=== PATIENT | male | born 1975 | race Hispanic/Latino ===

== ENCOUNTER 2021-02-26 16:16 | Emergency (ER) | payer SELFPAY ==
[2021-02-26 16:57] LABS: Absolute Lymphocytes (CBC) 2.2 K/uL (0.7-4.9); Basophils % 0.3 % (0-1.3); Hematocrit 43.5 % (39.6-49.0); Lymphocytes % 28.3 % (15.3-44.8); MPV 8.7 fL (7.6-11.3); RBC Red Blood Cell Count 5.33 M/uL (4.33-5.43)
[2021-02-26 17:15] LABS: Protime INR 0.93
--- NOTE | 2021-02-26 17:15 | RAD REPORT ---
EXAM DESCRIPTION: Hillary Single View02/26/2021 4:59 pm CLINICAL HISTORY: Chest pain COMPARISON: none FINDINGS: The lungs appear clear of acute infiltrate. The heart is normal size IMPRESSION: No acute abnormalities displayed
[2021-02-26 17:29] LABS: ALT/SGPT 75 U/L (12-78); AST/SGOT 42 U/L (15-37); Alkaline Phosphatase 124 U/L (45-117); BUN Blood Urea Nitrogen 12 mg/dL (7-18); Bicarbonate 27 mmol/L (21-32); Bilirubin Direct < 0.1 mg/dL (0-0.2); Bilirubin Total 0.3 mg/dL (0.2-1.0); Glucose Level 127 mg/dL (74-106); Magnesium 2.3 mg/dL (1.8-2.4); NT PRO-BNP 19 pg/mL (<125); Potassium 3.6 mmol/L (3.5-5.1); Protein, Total 7.7 g/dL (6.4-8.2); Sodium Level 138 mmol/L (136-145); Troponin (Emerg Dept Use Only) < 0.02 ng/mL (0.0-0.045)
--- NOTE | 2021-02-26 19:10 | EDPHYS ---
Physician Documentation [facility] Name: Homer Moore Age: 45 yrs Sex: Male : 1975 Arrival Date: 02/26/2021 Time: 16:20 Bed 2 Private MD: ED Physician Charly Wright HPI: 02/27 07:58 This 45 yrs old Male presents to ER via EMS with complaints of Chest Pain, kdr Dizziness. 07:58 The patient or guardian reports chest pain that is located primarily in the substernal kdr area, anterior chest wall. Onset: suddenly, just prior to arrival. The pain does not radiate. Associated signs and symptoms: Pertinent positives: dizziness, lightheadedness. The chest pain is described as aching, dull, a pressure. Duration: The patient or guardian reports a single episode, that is now resolved. Severity of pain: At its worst the pain was mild just prior to arrival, in the emergency department the pain is unchanged. The patient has experienced similar episodes in the past, This is the third episode the patient had. Patient has had several other episodes previously. He has been evaluated for this previously by his physician. Has not had a cardiology follow-up.. Historical: - Allergies: 02/26 16:24 No Known Allergies; hb - Home Meds: 16:24 None [Active]; hb - PMHx: 16:24 None; hb - PSHx: 16:24 None; hb - Immunization history:: Adult Immunizations up to date. - Social history:: Smoking status: Patient denies any tobacco usage or history of. ROS: 02/27 07:58 Constitutional: Negative for fever, chills, and weight loss, Eyes: Negative for injury, kdr pain, redness, and discharge, ENT: Negative for injury, pain, and discharge, Neck: Negative for injury, pain, and swelling, Respiratory: Negative for shortness of breath, cough, wheezing, and pleuritic chest pain, Abdomen/GI: Negative for abdominal pain, nausea, vomiting, diarrhea, and constipation, Back: Negative for injury and pain, : Negative for injury, bleeding, discharge, and swelling, MS/Extremity: Negative for injury and deformity, Skin: Negative for injury, rash, and discoloration, Psych: Negative for depression, anxiety, suicide ideation, homicidal ideation, and hallucinations, Allergy/Immunology: Negative for hives, rash, and allergies, Endocrine: Negative for neck swelling, polydipsia, polyuria, polyphagia, and marked weight changes, Hematologic/Lymphatic: Negative for swollen nodes, abnormal bleeding, and unusual bruising. Cardiovascular: Positive for chest pain, Negative for edema, orthopnea, palpitations, paroxysmal nocturnal dyspnea. Neuro: Positive for dizziness, Negative for altered mental status, headache, hearing loss, loss of consciousness, numbness, seizure activity, speech changes, syncope, near syncope, tinnitus. Exam: 07:58 Constitutional: This is a well developed, well nourished patient who is awake, alert, kdr and in no acute distress. Head/Face: Normocephalic, atraumatic. Eyes: Pupils equal round and reactive to light, extra-ocular motions intact. Lids and lashes normal. Conjunctiva and sclera are non-icteric and not injected. Cornea within normal limits. Periorbital areas with no swelling, redness, or edema. Neck: Trachea midline, no thyromegaly or masses palpated, and no cervical lymphadenopathy. Supple, full range of motion without nuchal rigidity, or vertebral point tenderness. No Meningismus. Chest/axilla: Normal chest wall appearance and motion. Nontender with no deformity. No lesions are appreciated. Cardiovascular: Regular rate and rhythm with a normal S1 and S2. No gallops, murmurs, or rubs. Normal PMI, no JVD. No pulse deficits. Respiratory: Lungs have equal breath sounds bilaterally, clear to auscultation and percussion. No rales, rhonchi or wheezes noted. No increased work of breathing, no retractions or nasal flaring. Abdomen/GI: Soft, non-tender, with normal bowel sounds. No distension or tympany. No guarding or rebound. No evidence of tenderness throughout. Back: No spinal tenderness. No costovertebral tenderness. Full range of motion. Skin: Warm, dry with normal turgor. Normal color with no rashes, no lesions, and no evidence of cellulitis. MS/ Extremity: Pulses equal, no cyanosis. Neurovascular intact. Full, normal range of motion. Neuro: Awake and alert, GCS 15, oriented to person, place, time, and situation. Cranial nerves II-XII grossly intact. Motor strength 5/5 in all extremities. Sensory grossly intact. Cerebellar exam normal. Normal gait. Psych: Awake, alert, with orientation to person, place and time. Behavior, mood, and affect are within normal limits. 08:14 ECG was reviewed by the Attending Physician. kdr Vital Signs: 02/26 16:20 BP 152 / 114; Pulse 77; Resp 16; Pulse Ox 100% ; Pain 0/10; ll1 16:45 BP 131 / 89; ll1 18:39 BP 142 / 91; Pulse 67; Resp 14; Pulse Ox 100% ; hb 19:11 BP 127 / 87; Pulse 62; Resp 18; Temp 98; Pulse Ox 100% on R/A; ch4 MDM: 19:08 Patient medically screened. kdr 02/27 07:58 Data reviewed: vital signs, nurses notes, lab test result(s), radiologic studies. kdr Counseling: I had a detailed discussion with the patient and/or guardian regarding: the historical points, exam findings, and any diagnostic results supporting the discharge/admit diagnosis, lab results, radiology results, the need for outpatient follow up. Special discussion: Based on the patient's history, exam, and Dx evaluation, there is no indication for emergent intervention or inpatient Tx. It is understood by the patient/guardian that if the Sx's persist or worsen they need to return immediately for re-evaluation. ED course: Patient was stable in the emergency department and had no further symptoms. He was discharged in good condition. He was happy with the care provided and the plan for discharge and follow-up. 02/26 16:29 Order name: Basic Metabolic Panel hb 02/26 16:29 Order name: CBC with Diff; Complete Time: 17:45 hb 02/26 16:29 Order name: LFT's; Complete Time: 17:45 hb 02/26 16:29 Order name: Magnesium; Complete Time: 17:45 hb 02/26 16:29 Order name: NT PRO-BNP; Complete Time: 17:45 hb 02/26 16:29 Order name: PT-INR; Complete Time: 17:45 hb 02/26 16:29 Order name: Troponin (emerg Dept Use Only); Complete Time: 17:45 hb 02/26 16:29 Order name: XRAY Chest (1 view); Complete Time: 17:45 hb 02/26 16:29 Order name: EKG; Complete Time: 16:30 hb 02/26 16:29 Order name: Cardiac monitoring; Complete Time: 16:29 hb 02/26 16:29 Order name: EKG - Nurse/Tech; Complete Time: 16:29 hb 02/26 16:29 Order name: IV Saline Lock; Complete Time: 16:30 hb 02/26 16:29 Order name: Basic Metabolic Panel; Complete Time: 17:45 EDMS 02/26 17:46 Order name: Troponin (emerg Dept Use Only): Draw 2 hours after initial draw ; Complete kdr Time: 19:02/26 19:07 Interpretation: Within normal limits. kdr 02/26 16:29 Order name: Labs collected and sent; Complete Time: 16:30 hb 02/26 16:29 Order name: O2 Per Protocol; Complete Time: 16:30 hb 02/26 16:29 Order name: O2 Sat Monitoring; Complete Time: 16:30 hb EC:14 Rate is 78 beats/min. Rhythm is regular, Sinus Rhythm with No ectopy. QRS [place] is kdr Normal. [place] interval is normal. QRS interval is normal. QT interval is normal. Clinical impression: NSR w/ Non-specific ST/T Changes. Administered Medications: No medications were administered Disposition Summary: 02/26/21 19:08 Discharge Ordered Location: Home kdr Problem: an acute exacerbation kdr Symptoms: are resolved kdr Condition: Stable kdr Diagnosis - Chest pain, unspecified kdr Followup: kdr - With: Private Physician - When: 2 - 3 days - Reason: If symptoms return, Further diagnostic work-up, Recheck today's complaints, Continuance of care, Re-evaluation by your physician Discharge Instructions: - Discharge Summary Sheet kdr - Nonspecific Chest Pain, Adult, [id number] kdr Forms: - Medication Reconciliation Form kdr - Thank You Letter kdr Signatures: Dispatcher Charly Schaefer MD MD kdr Dayana Quintanilla, RN RN Rhonda Ivey RN RN ll1
--- NOTE | 2021-02-26 19:10 | ER ---
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 CP also. Coronavirus screen: Client denies travel out of the [place] in the last 14 days. At this time, the client does not indicate any symptoms associated with coronavirus-19. Ebola Screen: Patient denies travel to an Ebola-affected area in the 21 days before illness onset. Initial Sepsis Screen: Does the patient meet any 2 criteria? No. Patient's initial sepsis screen is negative. Does the patient have a suspected source of infection? No. Patient's initial sepsis screen is negative. Risk Assessment: Do you want to hurt yourself or someone else? Patient reports no desire to harm self or others. Onset of symptoms was February 26, 2021. 16:20 Method Of Arrival: EMS: [facility] 1 16:20 Acuity: ASHLIE 3 ll1 Triage Assessment: 16:22 General: Appears in no apparent distress. Behavior is calm, cooperative. Pain: Denies hb pain. EENT: No signs and/or symptoms were reported regarding the EENT system. Neuro: Level of Consciousness is awake, alert, obeys commands, Oriented to person, place, time, situation. Cardiovascular: Patient's skin is warm and dry. Rhythm is regular. Respiratory: Respiratory effort is even, unlabored, Respiratory pattern is regular, symmetrical. GI: No signs and/or symptoms were reported involving the gastrointestinal system. : No signs and/or symptoms were reported regarding the genitourinary system. Derm: Skin is pink, warm \T\ dry. Musculoskeletal: No signs and/or symptoms reported regarding the musculoskeletal system. Historical: - Allergies: 16:24 No Known Allergies; hb - Home Meds: 16:24 None [Active]; hb - PMHx: 16:24 None; hb - PSHx: 16:24 None; hb - Immunization history:: Adult Immunizations up to date. - Social history:: Smoking status: Patient denies any tobacco usage or history of. Screenin:24 Abuse screen: Denies threats or abuse. Denies injuries from another. Nutritional hb screening: No deficits noted. Tuberculosis screening: No symptoms or risk factors identified. Fall Risk None identified. Assessment: 16:24 Reassessment: see triage. hb 16:24 General: Appears in no apparent distress. Behavior is calm, cooperative, appropriate ll1 for age. Pain: Denies pain. Pain: Pain does not radiate. Pain began 30 min ago. Neuro: Level of Consciousness is awake, alert, obeys commands, Gait is Speech is normal, Facial symmetry appears normal, Reports dizziness, weakness. Cardiovascular: Reports chest pain, Heart tones S1 S2 Capillary refill < 3 seconds Clubbing of nail beds is absent JVD is absent Patient's skin is warm and dry. Respiratory: No deficits noted. 18:39 Reassessment: Patient appears in no apparent distress at this time. No changes from hb previously documented assessment. Vital Signs: 16:20 BP 152 / 114; Pulse 77; Resp 16; Pulse Ox 100% ; Pain 0/10; ll1 16:45 BP 131 / 89; ll1 18:39 BP 142 / 91; Pulse 67; Resp 14; Pulse Ox 100% ; hb 19:11 BP 127 / 87; Pulse 62; Resp 18; Temp 98; Pulse Ox 100% on R/A; ch4 ED Course: 16:20 Patient arrived in ED. ll1 16:20 Dayana Quintanilla, RN is Primary Nurse. hb 16:20 Primary Nurse role handed off by Dayana Quintanilla, SANDRA ll1 16:20 Rhonda Ivey, SANRDA is Primary Nurse. ll1 16:20 Arm band placed on Patient placed in an exam room, on a stretcher. ll1 16:22 Triage completed. ll1 16:24 Patient has correct armband on for positive identification. Call light in reach. Side hb rails up X 1. 16:24 No provider procedures requiring assistance completed. Maintain EMS IV. Dressing hb intact. Good blood return noted. Site clean \T\ dry. Gauge \T\ site: 18 RRIST. 16:25 Maintain EMS IV. Dressing intact. Good blood return noted. Site clean \T\ dry. Gauge \T\ ll 1 site: 18 G R FA. Patient maintains SpO2 saturation greater than 95% on room air. 16:31 Charly Wright MD is Attending Physician. kdr 16:59 XRAY Chest (1 view) In Process Unspecified. EDMS 17:54 Troponin (emerg Dept Use Only): Draw 2 hours after initial draw Sent. hb 19:10 IV discontinued, intact, bleeding controlled, No redness/swelling at site. Pressure ch4 dressing applied. Administered Medications: No medications were administered Outcome: 19:08 Discharge ordered by . kdr 19:15 Discharged to home ambulatory. hb 19:15 Condition: stable 19:15 Discharge instructions given to patient, Instructed on discharge instructions, follow up and referral plans. medication usage, Demonstrated understanding of instructions, follow-up care, medications. 19:15 Patient left the ED. hb Signatures: Dispatcher [employer] [facility] Charly Wright MD MD kdr Dyaana Quintanilla, RN RN Rhonda Ivey, RN RN ll1 Clara Armenta, RN RN ch4
[2021-02-26 20:36] VITALS: O2SAT 100
[2021-02-26 20:39] VITALS: BP 127/87; TEMP 98
== END 2021-02-26 19:15 | disposition home or self-care (01) ==
LOC: ER 16:16
DX: R07.9 Chest pain, unspecified (principal)
CPT/HCPCS: 36415; 71045; 80048; 80076; 83735; 83880; 84484; 85025; 85610; 93005; 99284